=== PATIENT | male | born 1970 | race African-American/Black ===

== ENCOUNTER 2017-06-02 07:30 | Inpatient (IN) | payer OTHER ==
[2017-06-02] VITALS (17 sets, daily range): BP systolic 116–178; BP diastolic 80–110
[~2017-06-02] VITALS: Ht 170.2 cm; Wt 87.1 kg
--- NOTE | ~2017-06-02 | CATHLAB ---
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 Procedure Narrative The patient was brought emergently to the Cardiac Catheterization Laboratory and was prepped and draped in a sterile manner. The Right Groin^ was infiltrated with 1% Lidocaine subcutaneous anesthesia. A PINNACLE 6FR Sheath #[id number] sheath was inserted into the RFA^. Coronary angiography was performed using coronary diagnostic catheters. The right coronary system was accessed and visualized with a JR 4 catheter. The left coronary system was accessed and visualized with a JL 4 catheter. The left ventricle was accessed and visualized with a Pigtail catheter. Left ventricular/Aortic Valve gradient assessed via catheter pullback. Left ventriculogram was performed in NESBITT projection. Pre-demployment femoral angiogram was performed . Closure device was deployed with a 6 Fr . The patient tolerated the procedure well and there were no complications associated with the procedure. There was no hematoma. [facility] [address] [place] [address] INVASIVE PROCEDURE REPORT Name: JORGE LOW Room #: 160-1 ADM IN M.R.#: [id number] Admission: 06/02/17 Attend Phys: Jhony Pappas MD Discharge: Date of : 72 Date of Service: 06/02/17 1025 Report #: [id number] Fluoro Time: 16.03 minutes Dose: DAP 26878.80 cGycm2 3089 mGy Contrast Type and Amount: Omnipaque 205 ml Coronary Angiography The patient's coronary anatomy is co- dominant. Diagnostic Cath Left Main Large caliber vessel, patent with no flow-limiting lesions. LAD There is mild disease in the proximal and mid segments, 20%. There is a total occlusion in the distal segment. The LAD wraps around the apex and terminates in the distal inferior wall. Diagonal 1 Moderate size caliber vessel, bifurcates into 2 branches. Patent with no flow-limiting lesions. Circumflex Codominant system, with no flow-limiting lesions. OM1 Patent vessel, no flow-limiting lesions. Right Coronary Patent vessel, with no flow-limiting lesions. R PDA Patent vessel, with no flow-limiting lesions. Left Ventriculography The left ventricle is normal in size with lownormal contractility. The left ventricular ejection fraction is estimated to be 50%. Left ventricular wall motion abnormalities are present. There is mild hypokinesis of the distal inferoapical segment. Hemodynamics The aortic pressure is 171/97 mmHg with a mean of 129 mmHg. The left ventricular pressure is 175/2 mmHg with a mean of mmHg. The left ventricular end diastolic pressure is 24 mmHg. PCI Technique Lesion Anticoagulation was achieved with Angiomax. Patient was preloaded with Brillinta. Percutaneous coronary intervention was performed on the distal left anterior descending artery segment. The lesion stenosis prior to intervention was 100% with MARGARET 0 flow. A VISTA 6FR JL4 #[id number] Guide Catheter was used to engage the ostium. A Whisper Wire .014 x 190 #[id number] Interventional Guidewire was used to cross the lesion. BALLOON DILATION A Balloon catheter Euphora RX 2.5 x 10 #[id number] was inserted and inflated up to 8.00atm for 14seconds. [employer] [address] [address] INVASIVE PROCEDURE REPORT Name: JORGE LOW Room #: 160-1 [facility] IN M.R.#: [id number] Admission: 06/02/17 Attend Phys: Jhony Pappas MD Discharge: Date of : 72 Date of Service: 06/02/17 1025 Report #: [id number] A drug-eluting stent RESOLUTE RX 2.5 X 12 #[id number] was inserted and inflated up to 12.00atm for 20seconds. POST STENT DEPLOYMENT BALLOON DILATION A Balloon catheter Euphora NC RX 2.75 x 8 #[id number] was inserted and inflated up to 14.00atm for 27seconds. Final angiography reveals 0 % stenosis with MARGARET 3 flow. Conclusion 1. Successful insertion of a drug-eluting stent into the total occlusion at the distal LAD segment. 2. Codominant left circumflex system. 3. Lownormal LV systolic function, mild hypokinesis of the distal inferoapical segment. 4. Recommend dual antiplatelet therapy. <ELECTRONICALLY SIGNED> By: Jhony Pappas MD 06/02/17 1025 1025 1025 Jhony Pappas MD /INF
--- NOTE | ~2017-06-02 | D ---
[facility] [place] [address] DISCHARGE SUMMARY Name: JORGE LOW Room #: 203-P [facility] IN M.R.#: [id number] Admission: 06/02/17 Attend Phys: Jhony Pappas MD Discharge: 06/03/17 Date of : 72 Report #: [id number] THIS REPORT FOR: //name// CC: Jhony Pappas Gabbi Chandra DATE OF SERVICE: 06/03/2017 FINAL DIAGNOSES: 1. Acute inferolateral myocardial infarction, status post coronary angioplasty. 2. Hypertension. 3. Hypercholesterolemia. HOSPITAL COURSE: Please see the original H and P for full details. The patient presented to work yesterday morning and developed chest discomfort. He went to the ER for an evaluation. The initial ECG did not show any acute ST segment changes. However, the pain persisted and a repeat electrocardiogram [address] segment elevation in the inferolateral leads. He was taken emergently to the cardiac energy systems laboratory director. There was a total occlusion involving the distal LAD. Angioplasty was performed with placement of one drug-eluting stent. The LAD wrapped around the apex and terminated in the distal inferior wall. There was no other occlusive disease evident. The LV systolic function was borderline, EF in the 50% range with mild hypokinesis of the distal inferoapical segment. The patient has remained hemodynamically stable overnight. He will be discharged home today on aspirin 81 mg, Brilinta 90 mg twice a day, lisinopril, Toprol-XL and a statin medication. He was given strict instructions for followup in a few weeks' time. <ELECTRONICALLY SIGNED> By: Jhony Pappas MD 06/06/17806 9 6 Jhony Pappas MD /nt
--- NOTE | ~2017-06-02 | EKG ---
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
--- NOTE | ~2017-06-02 | EKG ---
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[place] : 1970 Requested By: Jhony Pappas Order Number: [id number] MD: Dax Patrick Measurements Intervals [place] Rate: 61 P: 4 IA: 154 QRS: 42 QRSD: 77 T: -27 QT: 408 QTc: 411 Interpretive Statements Sinus rhythm Nonspecific T abnormalities, diffuse leads Borderline ST elevation, anterolateral leads Compared to ECG 06/02/2017 11:13:50 T-wave abnormality now present ST (T wave) deviation now present Electronically Signed On 06-03-2017 9:05:53 HAZMAT CDL DRIVER by Dax Patrick [email or web address] <ELECTRONICALLY SIGNED> By: Dax Patrick MD 06/03/17904 2 2 Dax Patrick MD /ANN
--- NOTE | ~2017-06-02 | EKG ---
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 : 1970 Requested By: Gian Friend Order Number: [id number] MD: Antony Forman Measurements Intervals [place] Rate: 78 P: -45 MI: 156 QRS: 60 QRSD: 80 T: 71 QT: 378 QTc: 431 Interpretive Statements Sinus or ectopic atrial rhythm Abnormal R-wave progression, early transition Diffuse ST elevation, consider pericarditis, injury pattern, repolarization abnormality No previous ECG available for comparison Electronically Signed On 06-02-2017 8:27:58 [address] SPECIAL[address] by Antony Forman [email or web address] <ELECTRONICALLY SIGNED> By: Antony Forman MD, [facility] 06/02/17 0827 0741 0741 Antony Forman MD, FACC /EPI
--- NOTE | ~2017-06-02 | EKG ---
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 : 1970 Requested By: Gian Friend Order Number: [id number] MD: Dax Patrick Measurements Intervals [place] Rate: 81 P: 33 ND: 152 QRS: 61 QRSD: 83 T: 55 QT: 366 QTc: 425 Interpretive Statements Sinus rhythm Abnormal R-wave progression, early transition Minimal ST elevation, inferior leads Baseline wander in lead(s) V5 No previous ECG available for comparison Electronically Signed On 06-02-2017 9:54:28 ONLINE HEALTH AND FITNESS COACH by Dax Patrick [email or web address] <ELECTRONICALLY SIGNED> By: Dax Patrick MD 06/02/17 0954 1 1 Dax Patrick MD /ANN
--- NOTE | ~2017-06-02 | H ---
[facility] [place] [address] HISTORY AND PHYSICAL Name: JORGE LOW Room #: 203-P [facility] M..#: [id number] Admission: 06/02/17 Attend Phys: Jhony Pappas MD Discharge: Date of : 72 Report #: [id number] THIS REPORT FOR: //name// CC: Gian Friend DATE OF SERVICE: 06/02/2017 INDICATION: Chest pain. HISTORY OF PRESENT ILLNESS: This is a 46-year-old gentleman with a history of hypertension, presenting with acute onset of chest pain this morning. 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 He did feel generalized weakness and presented to the ER for an evaluation. The initial EKG did not show any significant ST segment changes. However, a second EKG, 9 minutes later, revealed ST elevation in the inferolateral leads. He denies any recent fever, chills, nausea, vomiting or diarrhea. PAST MEDICAL HISTORY: Positive for hypertension. Denies diabetes. ALLERGIES: None. MEDICATIONS: Lisinopril 10 mg daily. SOCIAL HISTORY: Negative for tobacco use. FAMILY HISTORY: Negative for premature CAD. REVIEW OF SYSTEMS: A full 10-point review of systems performed. Only the pertinent positives and negatives are described in the HPI. PHYSICAL EXAMINATION: VITAL SIGNS: Blood pressure 160/90, heart rate is 80 beats per minute. GENERAL APPEARANCE: This is a well-developed, well-nourished male in no acute respiratory distress. HEAD AND EYES: Normocephalic. Sclerae are anicteric. ENT: Oral mucosa moist. NECK: Supple. LUNGS: Clear to auscultation. CARDIAC: Regular rate and rhythm; S1, S2 positive. ABDOMEN: Soft, nontender. EXTREMITIES: No cyanosis, no edema. LABORATORY VALUES: Pending. IMAGING: ECG #[address] reveals [address] rhythm with ST elevation in the inferolateral [facility] [address] [place] [address] HISTORY AND PHYSICAL Name: JORGE LOW Room #: 203-P [facility].#: [id number] Admission: 06/02/17 Attend Phys: Jhony Pappas MD Discharge: Date of : 72 Report #: [id number] leads up to 1.5-2 mm. ASSESSMENT AND PLAN: 1. Acute inferolateral myocardial infarction. The patient was given aspirin, Brilinta, heparin and nitroglycerin in the ER. He will be taken emergently to the cardiac blood bank laboratory professional. 2. Hypertension, continue with the JOHNIE inhibitor. 3. Hypercholesterolemia, will need a statin medication. 4. Gastroesophageal reflux disease, gastrointestinal prophylaxis. <ELECTRONICALLY SIGNED> By: Jhony Pappas MD 06/02/17 1809 0824 Jhony Pappas MD /nt
[2017-06-02] MEDS ORDERED: LISINOPRIL10 MG PO (08:02)
[2017-06-02 09:49] LABS: HEMATOCRIT 43.4 % (42.0-52.0); HEMOGLOBIN 14.3 gm/dL (14.0-18.0); MCH 27.7 pg (26.0-34.0); RBC 5.16 mil/uL (4.50-6.00); WBC 6.5 thou/uL (4.0-11.0)
[2017-06-02 10:03] LABS: CALCIUM 8.9 mg/dL (8.5-10.1); POTASSIUM 4.1 mmol/L (3.5-5.1)
[2017-06-02 10:12] LABS: TROPONIN-I 0.59 ng/mL (<0.06)
[2017-06-03 02:54] LABS: HEMATOCRIT 43.8 % (42.0-52.0); HEMOGLOBIN 14.2 gm/dL (14.0-18.0); MCH 27.3 pg (26.0-34.0); MCHC 32.4 g/dL (28.0-37.0); MCV 84.2 fL (80.0-100.0); RBC 5.2 mil/uL (4.50-6.00); RDW 13.7 % (10.5-14.5); WBC 7.8 thou/uL (4.0-11.0)
[2017-06-03 03:12] LABS: CALCIUM 9.2 mg/dL (8.5-10.1); CREATININE 1.1 mg/dL (0.7-1.3); POTASSIUM 4.6 mmol/L (3.5-5.1)
[2017-06-03 03:14] LABS: TROPONIN-I 4.37 ng/mL (<0.06)
[2017-06-03 04:16] VITALS: BP 130/93
[2017-06-03] MEDS ORDERED: ALTACE5 MG PO (07:58)
[2017-06-03] MEDS ORDERED: METOPROLOL SUCC50 MG PO (07:58)
[2017-06-03] MEDS ORDERED: BRILINTA90 MG PO (07:58)
[2017-06-03] MEDS ORDERED: ATORVASTATIN CA40 MG PO (07:58)
[2017-06-03] MEDS ORDERED: ASPIR 8181 MG PO (07:58)
[2017-06-03 08:10] VITALS: BP 130/93
[2017-06-03 10:09] VITALS: BP 117/82
[2017-06-03 10:39] LABS: CHOLESTEROL 225 mg/dL (<200); HDL CHOLESTEROL 70 mg/dL (>40); LDL CHOLESTEROL 132 mg/dL (<100); TC:HDL 3.2 Ratio (Not establshd); TRIGLYCERIDE 117 mg/dL (<150); VLDL 23 mg/dL (<40)
== END 2017-06-03 10:27 | disposition home or self-care (01) | DRG 247 ==
LOC: ER 07:30 → TBACV 09:30 → 2N 09:30
PROVIDERS: Internal Medicine Cardiovascular Disease; Nurse Practitioner Adult Health
PROC: B2111ZZ Fluoroscopy of Multiple Coronary Arteries using Low Osmolar Contrast (ICD-10-PCS; principal; 2017-06-02)
PROC: 4A023N7 Measurement of Cardiac Sampling and Pressure, Left Heart, Percutaneous Approach (ICD-10-PCS; principal; 2017-06-02)
PROC: 027034Z Dilation of Coronary Artery, One Artery with Drug-eluting Intraluminal Device, Percutaneous Approach (ICD-10-PCS; principal; 2017-06-02)
PROC: B2151ZZ Fluoroscopy of Left Heart using Low Osmolar Contrast (ICD-10-PCS; principal; 2017-06-02)
DX: I21.19 ST elevation (STEMI) myocardial infarction involving other coronary artery of inferior wall (principal); I25.10 Atherosclerotic heart disease of native coronary artery without angina pectoris; I10 Essential (primary) hypertension; E78.00 Pure hypercholesterolemia, unspecified; K21.9 Gastro-esophageal reflux disease without esophagitis
CPT/HCPCS: 10081

== ENCOUNTER → 2017-12-15 | Outpatient (CLI) | payer OTHER ==
[~2017-12-15] MED LIST: ALTACE5 MG PO; ASPIR 8181 MG PO; ATORVASTATIN CA40 MG PO; BRILINTA90 MG PO; LISINOPRIL10 MG PO; METOPROLOL SUCC50 MG PO
--- NOTE | ~2017-12-15 | 2DMMODE ---
[facility] [address] [place] [address] 2 D/M-MODE ECHOCARDIOGRAM Name: JORGE LOW Room #: REG [facility]#: [id number] Admission: 12/15/17 Attend Phys: Jhony Pappas MD Discharge: Date of : 72 Date of Service: 12/15/17 1050 Report #: [id number] THIS REPORT FOR: //name// APPROVED REPORT Study performed: 12/15/2017 09:54:38 EXAM: Comprehensive 2D, Doppler, and color-flow Echocardiogram Patient Location: Out-Patient Room #: Echo lab 1 Status: routine BSA: 1.98 HR: 56 bpm BP: 130/85 mmHg Other Information Study Quality: Good Indications CAD Hypertension/HDD 2D Dimensions RVDd: 32.13 mm LVEF(%): 66.44 (>50%) IVSd: 9.05 (7-11mm) LVOT Diam: 18.29 (18-24mm) LVDd: 45.83 mm PWd: 8.04 (7-11mm) Ascending Ao: 28.73 (22-36mm) LVDs: 29.07 (25-40mm) Aortic Root: 28.75 mm IVC: 18.00 mm Vasquez's LVEF: 66.44 % Volumes Left Atrial Volume (Systole) Single Plane 4CH: 69.27 mL Single Plane 2CH: 48.21 mL LA ESV Index: 32.00 mL/m2 Aortic Valve AoV Peak Alo.: 1.83 m/s AO Peak Gr.: 13.45 mmHg LVOT Max P.18 mmHg LVOT Max V: 1.43 m/s VANESSA Vmax: 2.05 cm2 Mitral Valve E/A Ratio: 1.2 MV Decel. Time: 226.27 ms [facility] [place] [place] [address] 2 D/M-MODE ECHOCARDIOGRAM Name: DEVANTEJORGE Room #: [facility]#: [id number] Admission: 12/15/17 Attend Phys: Jhony Pappas MD Discharge: Date of : 72 Date of Service: 12/15/17 1050 Report #: [id number] MV E Max Alo.: 1.11 m/s MV A Alo.: 0.93 m/s MV PHT: 65.62 ms IVRT: 73.82 ms Pulmonary Valve PV Peak Alo.: 1.11 m/s PV Peak Gr.: 4.91 mmHg Pulmonary Vein P Vein S: 0.66 m/s P Vein A: 0.39 m/s P Vein D: 0.54 m/s P Vein A Dur.: 161.5 msec P Vein S/D Ratio: 1.22 Tricuspid Valve TR Peak Alo.: 2.44 m/s TR Peak Gr.: 23.76 mmHg PA Pressure: 29.00 mmHg Left Ventricle The left ventricle is normal size. There is normal LV segmental wall motion. There is normal left ventricular wall thickness. Left ventricular systolic function is normal. The left ventricular ejection fraction is within the normal range. LVEF is 55-60%. The left ventricular diastolic function is normal. Right Ventricle The right ventricle is normal size. The right ventricular systolic function is normal. Atria The left atrium size is normal. The right atrium size is normal. Aortic Valve The aortic valve is normal in structure. No aortic regurgitation is present. There is no aortic valvular stenosis. There is normal aortic valve excursion. Mitral Valve The mitral valve is normal in structure. Trace mitral regurgitation. No evidence of mitral valve stenosis. Tricuspid Valve The tricuspid valve is normal in structure. There is trace tricuspid regurgitation. Estimated PAP 29 mmHg. There is no pulmonary hypertension. [facility] [address] [place] [address] 2 D/M-MODE ECHOCARDIOGRAM Name: JORGE LOW Room #: REG [facility]#: [id number] Admission: 12/15/17 Attend Phys: Jhony Pappas MD Discharge: Date of : 72 Date of Service: 12/15/17 1050 Report #: [id number] Pulmonic Valve The pulmonary valve is normal in structure. There is no pulmonic valvular regurgitation. Great Vessels The aortic root is normal in size. IVC is normal in size and collapses with >50% inspiration Pericardium There is no pericardial effusion. <Conclusion> The left ventricle is normal size. There is normal left ventricular wall thickness. Left ventricular systolic function is normal. The left ventricular diastolic function is normal. The right ventricle is normal size. The left atrium size is normal. The aortic valve is normal in structure. Trace mitral regurgitation. There is trace tricuspid regurgitation. Estimated PAP 29 mmHg. There is no pulmonary hypertension. <ELECTRONICALLY SIGNED> By: Jhony Pappas MD 12/15/17 1050 49 49 Jhony Pappas MD /INF
== END ==
LOC: CV 07:30
DX: I10 Essential (primary) hypertension (principal); I25.10 Atherosclerotic heart disease of native coronary artery without angina pectoris

== ENCOUNTER → 2019-09-21 | Outpatient (CLI) | payer OTHER | LOC: SJCVCIMAG 09-20 10:18 | DX: R00.0 Tachycardia, unspecified (principal); E78.5 Hyperlipidemia, unspecified; I10 Essential (primary) hypertension; I25.2 Old myocardial infarction; Z95.5 Presence of coronary angioplasty implant and graft; Z79.899 Other long term (current) drug therapy ==